=== PATIENT | male | born 1965 | race Asian ===

== ENCOUNTER → 2018-01-29 | Outpatient (CLI) | payer OTHER ==
[~2018-01-29] MED LIST: ASPI-390 PO; B COTAB PO; OXYC-90 PO
== END | disposition home or self-care (01) ==
LOC: C.LABSPEC 09:31
PROVIDERS: ATTEND Surgery
DX: R19.7 Diarrhea, unspecified (principal); R10.9 Unspecified abdominal pain

== ENCOUNTER 2018-02-02 10:51 | Emergency (ER) | payer OTHER ==
[~2018-02-02] VITALS: Ht 165.1 cm; Wt 61.4 kg
[2018-02-02 11:04] VITALS: TEMP 36.8; Ht 165.1 cm; Wt 61.4 kg
--- NOTE | 2018-02-02 11:17 | EMERGENCY ROOM VISIT NOTE ---
History Report prepared by Karen: Johnna Mac Under the Supervision of: Dr. Lj Bryant D.O. First contact with patient: 11:08 Chief Complaint: ABDOMINAL PAIN Stated Complaint: PAIN IN THE APPENDIX AREA Nursing Triage Summary: pt went to surgeon for check up after having appendix ouit. still has right lower quad pain sent here for eval History of Present Illness The patient is a 52 year old male who presents to the Emergency Room with complaints of constant right abdominal pain that began 7 days ago. The patient states that he had an appendectomy performed a month ago after it perforated. He states that at that time he had been having abdominal pain for a week. He states that when this pain occurred for a week he contacted his PCP who advised him to go to the ED for his pain. The patient states that originally his abdomen felt heavy, but has since become painful. The patient denies nausea, vomiting, urinary symptoms, fever, cough, rhinorrhea, and headache. The patient notes he last moved his bowels today and had no issues. Source of History: patient Onset: 7 days ago Position: abdomen Quality: other (heavy) Timing: constant Associated Symptoms: No fevers, No headache, No cough, No nausea, No vomiting, No urinary symptoms Note: The patient denies rhinorrhea. Review of Systems See HPI for pertinent positives & negatives. A total of 10 systems reviewed and were otherwise negative. Past Medical & Surgical Medical Problems: (1) Abdominal pain (2) Hx of hemorrhoids (3) Mass of cecum Surgical Problems: (1) Hx of appendectomy Family History No pertinent family history Social History Smoking Status: Never Smoker Alcohol Use: occasionally Marital Status: Housing Status: lives with family Occupation Status: employed Current/Historical Medications Scheduled B Complex W/ C (B-Complex +C), 1 TAB PO DAILY Scheduled PRN Ihgrwwk-Ygvgahrlkqual-Mooggglx (Excedrin Migraine), 1 TAB PO for Pain Allergies Coded Allergies: No Known Allergies (Unverified , 02/02/18) Physical Exam Vital Signs Date Time Temp Pulse Resp B/P (MAP) Pulse Ox O2 Delivery O2 Flow Rate FiO2 02/02/18 15:20 60 18 132/72 97 Room Air 02/02/18 13:22 67 18 125/85 97 Room Air 02/02/18 11:04 36.8 71 18 125/87 96 Room Air Physical Exam GENERAL: Sitting up in bed, alert, well appearing, well nourished, no distress, non-toxic EYE EXAM: Normal conjunctiva. OROPHARYNX: no exudate, no erythema, lips, buccal mucosa, and tongue normal and mucous membranes are moist NECK: supple, no nuchal rigidity, no adenopathy, non-tender LUNGS: Clear to auscultation. Normal chest wall mechanics HEART: no murmurs, S1 normal and S2 normal ABDOMEN: abdomen soft, tender to palpation in the right lower quadrant, normo- active bowel sounds, no masses, no rebound or guarding. BACK: Back is symmetrical on inspection and there is no deformity, no midline tenderness, no CVA tenderness. : Normal external genitalia, no masses, testicles non-tender. SKIN: no rashes and no bruising UPPER EXTREMITIES: upper extremities are grossly normal. LOWER EXTREMITIES: No pitting edema. NEURO EXAM: Normal sensorium, cranial nerves II-XII grossly intact, normal speech, no gross weakness of arms, no gross weakness of legs. Medical Decision & Procedures ER Provider Diagnostic Interpretation: Radiology results as stated below per my review and the radiologist's interpretation: CT ABD/PELVIS IV CONTRAST ONLY CLINICAL HISTORY: Right lower quadrant abdominal pain. PRIOR HISTORY OF APPENDICITIS WITH PERFORATION COMPARISON STUDY: 12/27/2017 TECHNIQUE: Following the IV administration of 93 mL of Optiray-320, CT scan of the abdomen and pelvis was performed from the lung bases to the proximal femurs. Images are reviewed in the axial, sagittal, and coronal planes. IV contrast was administered without complication. A dose lowering technique was utilized adhering to the principles of ALARA. CT DOSE: 264.32 mGy.cm FINDINGS: Lower chest: There is basilar atelectasis/scarring Liver: The contrast-enhanced liver is normal in size, contour, and attenuation. There is no intrahepatic biliary ductal dilatation. The hepatic veins and portal veins are patent. Gallbladder: Unremarkable. Spleen: Normal in size and attenuation. Pancreas: Unremarkable. Adrenal glands: Unremarkable. Kidneys: There is symmetric renal cortical enhancement. The kidneys are normal in size without hydronephrosis. Bowel: There are postsurgical changes of a right hemicolectomy. There is bowel wall thickening at the level of the anastomosis. There is minimal infiltration of the surrounding fat. There is borderline wall thickening involving several distal ileal loops. There is a fluid-filled borderline dilated upper pelvic small bowel loop. There is no current evidence of a high-grade bowel obstruction. There are no fluid collections to indicate an abscess. Peritoneum: There is no intraperitoneal free air or abdominal ascites. Vasculature: The abdominal aorta is normal in course and caliber. Adenopathy: None. Pelvic viscera: The bladder, and pelvic viscera are unremarkable. Skeletal structures: Moderate degenerative changes are present the L4-5 level. IMPRESSION: 1. Postsurgical changes of a right hemicolectomy. There is bowel wall thickening at the level of the anastomosis. There is minimal infiltration of the surrounding fat. The findings are likely postsurgical/inflammatory. There are no fluid collections to indicate a drainable abscess. 2. Borderline dilated upper pelvic small bowel loops containing air-fluid level. This likely represents a mild ileus. There are no current findings to indicate a significant bowel obstruction. Electronically signed by: Zackery Nunez M.D. 02/02/2018 1:09 PM Dictated Date/Time: 02/02/2018 1:01 PM Laboratory Results 02/02/18 11:22 Red Blood Count 4.73, Mean Corpuscular Volume 88.8, Mean Corpuscular Hemoglobin 30.7, Mean Corpuscular Hemoglobin Concent 34.5, Mean Platelet Volume 8.8, Neutrophils (%) (Auto) 59.0, Lymphocytes (%) (Auto) 32.8, Monocytes (%) (Auto) 7.0, Eosinophils (%) (Auto) 0.6, Basophils (%) (Auto) 0.4, Neutrophils # (Auto) 3.04, Lymphocytes # (Auto) 1.69, Monocytes # (Auto) 0.36, Eosinophils # (Auto) 0.03, Basophils # (Auto) 0.02 02/02/18 11:22 Test 02/02/18 11:08 02/02/18 11:22 Urine Color DK YELLOW Urine Appearance CLEAR (CLEAR) Urine pH 5.0 (4.5-7.5) Urine Specific [place] 1.027 (1.000-1.030) Urine Protein NEG (NEG) Urine Glucose (UA) NEG (NEG) Urine Ketones NEG (NEG) Urine Occult Blood NEG (NEG) Urine Nitrite NEG (NEG) Urine Bilirubin NEG (NEG) Urine Urobilinogen NEG (NEG) Urine Leukocyte Esterase NEG (NEG) Urine WBC (Auto) 0 /hpf (0-5) Urine RBC (Auto) 0-4 /hpf (0-4) Urine Hyaline Casts (Auto) 1-5 /lpf (0-5) Urine Epithelial Cells (Auto) 0-5 /lpf (0-5) Urine Bacteria (Auto) NEG (NEG) White Blood Count 5.15 K/uL (4.8-10.8) Red Blood Count 4.73 M/uL (4.7-6.1) Hemoglobin 14.5 g/dL (14.0-18.0) Hematocrit 42.0 % (42-52) Mean Corpuscular Volume 88.8 fL (80-100) Mean Corpuscular Hemoglobin 30.7 pg (25-34) Mean Corpuscular Hemoglobin Concent 34.5 g/dl (32-36) Platelet Count 216 K/uL (130-400) Mean Platelet Volume 8.8 fL (7.4-10.4) Neutrophils (%) (Auto) 59.0 % Lymphocytes (%) (Auto) 32.8 % Monocytes (%) (Auto) 7.0 % Eosinophils (%) (Auto) 0.6 % Basophils (%) (Auto) 0.4 % Neutrophils # (Auto) 3.04 K/uL (1.4-6.5) Lymphocytes # (Auto) 1.69 K/uL (1.2-3.4) Monocytes # (Auto) 0.36 K/uL (0.11-0.59) Eosinophils # (Auto) 0.03 K/uL (0-0.5) Basophils # (Auto) 0.02 K/uL (0-0.2) RDW Standard Deviation 43.2 fL (36.4-46.3) RDW Coefficient of Variation 13.3 % (11.5-14.5) Immature Granulocyte % (Auto) 0.2 % Immature Granulocyte # (Auto) 0.01 K/uL (0.00-0.02) Anion Gap 6.0 mmol/L (3-11) Est Creatinine Clear Calc Drug Dose 94.9 ml/min Estimated GFR () 119.9 Estimated GFR (Non- 103.4 BUN/Creatinine Ratio 20.2 (10-20) Calcium Level 8.7 mg/dl (8.5-10.1) Total Bilirubin 0.4 mg/dl (0.2-1) Direct Bilirubin 0.2 mg/dl (0-0.2) Aspartate Amino Transf (AST/SGOT) 23 U/L (15-37) Alanine Aminotransferase (ALT/SGPT) 47 U/L (12-78) Alkaline Phosphatase 99 U/L (45-117) Total Protein 7.1 gm/dl (6.4-8.2) Albumin 4.3 gm/dl (3.4-5.0) Lipase 165 U/L (73-393) Laboratory results per my review. ED Course ED COURSE: Vital signs were reviewed and showed that they were normal. The patients medical record was reviewed The above diagnostic studies were performed and reviewed. ED treatments and interventions as stated above. 1109: The patient was evaluated in room C5. A complete history and physical examination was performed. 1315: I discussed the patient's case with Chely Diaz PA-C- General Surgeon. She will review the images. 1402: I discussed the patient's case with - General Surgeon. 1413: I discussed the patient's case with Alireza Kang PA-C- General Surgeon. He will come evaluate the patient. 1437: I reevaluated the patient and Dr. Pina is currently with the patient. 1509: Upon reevaluation, the patient is resting comfortably. I discussed my findings with the patient and he understands and agrees with the treatment plan. Based on the patients age, coexisting illnesses, exam and lab findings the decision to treat as an outpatient was made. The patient remained stable while under my care. The patient appeared well at the time of discharge. Medical Decision Differential diagnoses includes but is not limited to gastritis, peptic ulcer disease, GERD, gallbladder disease, pancreatitis, small bowel obstruction, acute coronary syndrome, pericarditis, ischemic bowel, irritable bowel disease, irritable bowel syndrome, appendicitis, diverticulitis, malignancy, hernia, urinary tract infection, torsion, perforation, trauma, infectious. Patient is a 52-year-old male who presents the ER for right lower quadrant abdominal pain. One month ago he had ruptured appendectomy and surgery with partial resection of his bowel. He has been doing well up into the past week. Pain started in the right lower quadrant. CBC along with BMP, LFTs, bilirubin lipase is unremarkable. UA was negative. Patient was evaluated by general surgery. CT shows likely ileus but no obvious infection. Patient declined any pain medications. He was discharged follow-up with general surgeon as an outpatient. Discussed with Pt concerning signs and symptoms to watch out for. Pt was instructed to follow up with their PCP and discussed with the patient their option to return to the ED at anytime for persistent or worsening symptoms. The appropriate anticipatory guidance and out-patient management, including indications for return to the emergency department, were explained at length to the patient and understood. Medication Reconcilliation Current Medication List: was personally reviewed by me Blood Pressure Screening Patient's blood pressure: Normal blood pressure Blood pressure disposition: Did not require urgent referral Consults Time Called: 1302 Consulting Physician: AYAH Kahn Returned Call: 1315 I discussed the patient's case with AYAH Kahn. She will review the images. Additional Consults: Time Called: 1400 Consulted Physician: Dr.Yang- General Manzano Returned Call: 1402 Additional Comments: I discussed the patient's case with Dr.Yang- General Manzano. Time Called: 1412 Consulted Physician: AYAH Pino Returned Call: 1413 Additional Comments: I discussed the patient's case with AYAH Pino. He will come evaluate the patient. Impression Primary Impression: Postoperative abdominal pain Scribe Attestation The scribe's documentation has been prepared under my direction and personally reviewed by me in its entirety. I confirm that the note above accurately reflects all work, treatment, procedures, and medical decision making performed by me. Departure Information Dispostion Home / Self-Care Referrals Michael Patel M.D. (PCP) Forms Call Back Authorization, HOME CARE DOCUMENTATION FORM, IMPORTANT VISIT INFORMATION Patient Instructions My [facility] Additional Instructions Please follow up with your primary care doctor with in the next 24 hours. Any worsening of your symptoms, please return to the ED immediately. This includes any fevers greater than 100.4, worsening pain, chest pain, shortness breath, persistent nausea, vomiting, unable to eat or drink, or any other concerning signs or symptoms from your standpoint. Please take Tylenol or Motrin as needed for pain. Please make sure that you follow-up with general surgery as an outpatient.
[2018-02-02] MEDS ORDERED: OPTIRAY 320 IV PRN (11:30)
[2018-02-02 11:36] LABS: BASO % 0.4 %; BASO ABS # 0.02 K/uL (0-0.2); EOS % 0.6 %; EOS ABS # 0.03 K/uL (0-0.5); HEMOGLOBIN 14.5 g/dL (14.0-18.0); IG# 0.01 K/uL (0.00-0.02); LYMPH % 32.8 %; LYMPH ABS # 1.69 K/uL (1.2-3.4); MEAN CELL VOLUME 88.8 fL (80-100); MEAN CORPUSCULAR HEMOGLOBIN 30.7 pg (25-34); MEAN CORPUSCULAR HGB CONC 34.5 g/dl (32-36); MEAN PLATELET VOLUME 8.8 fL (7.4-10.4); MONO ABS # 0.36 K/uL (0.11-0.59); NEUT ABS # 3.04 K/uL (1.4-6.5); PLATELET COUNT 216 K/uL (130-400); RED CELL DISTRIBUTION WIDTH CV 13.3 % (11.5-14.5); RED CELL DISTRIBUTION WIDTH SD 43.2 fL (36.4-46.3); WHITE BLOOD COUNT 5.15 K/uL (4.8-10.8)
[2018-02-02 11:55] LABS: ALBUMIN 4.3 gm/dl (3.4-5.0); CALCIUM 8.7 mg/dl (8.5-10.1); CREATININE 0.8 mg/dl (0.60-1.40); POTASSIUM 3.8 mmol/L (3.5-5.1); TOTAL PROTEIN 7.1 gm/dl (6.4-8.2)
--- NOTE | 2018-02-02 13:10 | DIAGNOSTIC IMAGING REPORT ---
CT ABD/PELVIS IV CONTRAST ONLY CLINICAL HISTORY: Right lower quadrant abdominal pain. PRIOR HISTORY OF APPENDICITIS WITH PERFORATION COMPARISON STUDY: 12/27/2017 TECHNIQUE: Following the IV administration of 93 mL of Optiray-320, CT scan of the abdomen and pelvis was performed from the lung bases to the proximal femurs. Images are reviewed in the axial, sagittal, and coronal planes. IV contrast was administered without complication. A dose lowering technique was utilized adhering to the principles of ALARA. CT DOSE: 264.32 mGy.cm FINDINGS: Lower chest: There is basilar atelectasis/scarring Liver: The contrast-enhanced liver is normal in size, contour, and attenuation. There is no intrahepatic biliary ductal dilatation. The hepatic veins and portal veins are patent. Gallbladder: Unremarkable. Spleen: Normal in size and attenuation. Pancreas: Unremarkable. Adrenal glands: Unremarkable. Kidneys: There is symmetric renal cortical enhancement. The kidneys are normal in size without hydronephrosis. Bowel: There are postsurgical changes of a right hemicolectomy. There is bowel wall thickening at the level of the anastomosis. There is minimal infiltration of the surrounding fat. There is borderline wall thickening involving several distal ileal loops. There is a fluid-filled borderline dilated upper pelvic small bowel loop. There is no current evidence of a high-grade bowel obstruction. There are no fluid collections to indicate an abscess. Peritoneum: There is no intraperitoneal free air or abdominal ascites. Vasculature: The abdominal aorta is normal in course and caliber. Adenopathy: None. Pelvic viscera: The bladder, and pelvic viscera are unremarkable. Skeletal structures: Moderate degenerative changes are present the L4-5 level. IMPRESSION: 1. Postsurgical changes of a right hemicolectomy. There is bowel wall thickening at the level of the anastomosis. There is minimal infiltration of the surrounding fat. The findings are likely postsurgical/inflammatory. There are no fluid collections to indicate a drainable abscess. 2. Borderline dilated upper pelvic small bowel loops containing air-fluid level. This likely represents a mild ileus. There are no current findings to indicate a significant bowel obstruction. Electronically signed by: Zackery Nunez M.D. 02/02/2018 1:09 PM Dictated Date/Time: 02/02/2018 1:01 PM
--- NOTE | 2018-02-02 15:06 | Medical Consult ---
Consultation Date of Consultation: Feb 02, 2018. Attending Physician: History of Present Illness 52 y/o male 5 weeks s/p laparoscopic assisted right hemicolectomy with ileocolic anastomosis and lysis of adhesions for perforated appendix/cecum referred to ER by PCP for RLQ discomfort for . No fevers or chills. Bowels have been moving, sometimes loose in the afternoon and had stool studies ordered by our office last week which were negative. Appetite has been good. Has not taken analgesics for abdominal pain but Excedrin he took for migraine didn't help his discomfort. Past Medical/Surgical History Medical Problems: (1) Acute appendicitis Status: Acute Social History Smoking Status: Never Smoker Marital Status: Housing Status: lives with family Occupation Status: employed Allergies Coded Allergies: No Known Allergies (Unverified , 02/02/18) Current Inpatient Medications Current Inpatient Medications Medications (Trade) Dose Ordered Sig/Srikanth Route Start Time Stop Time Status Last Admin Dose Admin Ioversol (Optiray 320) 100 ml UD PRN IV 02/02/18 11:30 02/06/18 11:29 Review of Systems Constitutional: No fever, No chills Abdomen: + pain, + diarrhea (after lunch), No nausea, No vomiting Physical Exam Date Time Temp Pulse Resp B/P (MAP) Pulse Ox O2 Delivery O2 Flow Rate FiO2 02/02/18 13:22 67 18 125/85 97 Room Air 02/02/18 11:04 36.8 71 18 125/87 96 Room Air General Appearance: WD/WN, no apparent distress Abdomen/GI: soft, + tenderness (mild), + pertinent finding (incision well healed) Laboratory Results Last 24 Hours Test 02/02/18 11:08 02/02/18 11:22 Urine Color DK YELLOW Urine Appearance CLEAR Urine pH 5.0 Urine Specific [place] 1.027 Urine Protein NEG Urine Glucose (UA) NEG Urine Ketones NEG Urine Occult Blood NEG Urine Nitrite NEG Urine Bilirubin NEG Urine Urobilinogen NEG Urine Leukocyte Esterase NEG Urine WBC (Auto) 0 /hpf Urine RBC (Auto) 0-4 /hpf Urine Hyaline Casts (Auto) 1-5 /lpf Urine Epithelial Cells (Auto) 0-5 /lpf Urine Bacteria (Auto) NEG White Blood Count 5.15 K/uL Red Blood Count 4.73 M/uL Hemoglobin 14.5 g/dL Hematocrit 42.0 % Mean Corpuscular Volume 88.8 fL Mean Corpuscular Hemoglobin 30.7 pg Mean Corpuscular Hemoglobin Concent 34.5 g/dl Platelet Count 216 K/uL Mean Platelet Volume 8.8 fL Neutrophils (%) (Auto) 59.0 % Lymphocytes (%) (Auto) 32.8 % Monocytes (%) (Auto) 7.0 % Eosinophils (%) (Auto) 0.6 % Basophils (%) (Auto) 0.4 % Neutrophils # (Auto) 3.04 K/uL Lymphocytes # (Auto) 1.69 K/uL Monocytes # (Auto) 0.36 K/uL Eosinophils # (Auto) 0.03 K/uL Basophils # (Auto) 0.02 K/uL RDW Standard Deviation 43.2 fL RDW Coefficient of Variation 13.3 % Immature Granulocyte % (Auto) 0.2 % Immature Granulocyte # (Auto) 0.01 K/uL Sodium Level 140 mmol/L Potassium Level 3.8 mmol/L Chloride Level 106 mmol/L Carbon Dioxide Level 28 mmol/L Anion Gap 6.0 mmol/L Blood Urea Nitrogen 16 mg/dl Creatinine 0.80 mg/dl Est Creatinine Clear Calc Drug Dose 94.9 ml/min Estimated GFR () 119.9 Estimated GFR (Non- 103.4 BUN/Creatinine Ratio 20.2 Random Glucose 80 mg/dl Calcium Level 8.7 mg/dl Total Bilirubin 0.4 mg/dl Direct Bilirubin 0.2 mg/dl Aspartate Amino Transf (AST/SGOT) 23 U/L Alanine Aminotransferase (ALT/SGPT) 47 U/L Alkaline Phosphatase 99 U/L Total Protein 7.1 gm/dl Albumin 4.3 gm/dl Lipase 165 U/L Assessment & Plan post-op RLQ pain Labs normal, CT findings appear common postsurgical. Stool cultures and C. diff were negative in the office. OK for discharge home, has appt scheduled with Dr. Kiran on . No indication for antibiotics, he can use OTC analgesics prn.
[2018-02-02 15:20] VITALS: BP 132/72; PULSE 60; O2SAT 97
== END 2018-02-02 15:42 | disposition home or self-care (01) ==
LOC: C.EDB 10:52 → C.EDC 15:42
DX: G89.18 Other acute postprocedural pain (principal); Z98.890 Other specified postprocedural states